=== PATIENT | female | born 1955 | race Caucasian/White ===

== ENCOUNTER → 2016-07-11 | Outpatient (CLI) | payer OTHER ==
[2016-07-11 07:36] LABS: Basophils % (A) 1 %; CHCM 33.2; Eosinophils # (A) 0.2 k/uL (0-0.7); Eosinophils % (A) 4 %; HCT 43.4 % (34.0-46.0); HDW 2.44; Luc # (Auto) 0.11; Luc % (Auto) 3; Lymphocytes # (A) 1.9 k/uL (1.0-4.8); Lymphocytes % (A) 44 %; MCH 29.4 pg (25.0-35.0); MCHC 32.3 g/dL (31.0-37.0); MCV 90.8 fL (80.0-100.0); Mean Platelet Volume 6.2; Monocytes # (A) 0.3 k/uL (0-1.0); Monocytes % (A) 6 %; Neutrophils # (A) 1.9 k/uL (1.3-7.7); Neutrophils % (A) 43 %; RBC 4.78 m/uL (3.80-5.40); RDW 13.1 % (11.5-15.5); WBC 4.4 k/uL (3.8-10.6)
[2016-07-11 07:45] LABS: ALT 33 U/L (9-52); AST 26 U/L (14-36); Alkaline Phosphatase 69 U/L (38-126); Anion Gap 8 mmol/L; Blood Urea Nitrogen 17 mg/dL (7-17); Calcium 9.7 mg/dL (8.4-10.2); Carbon Dioxide 28 mmol/L (22-30); Chloride 104 mmol/L (98-107); Cholesterol 213 mg/dL (<200); Glucose 89 mg/dL (74-99); HDL Cholesterol 72 mg/dL (40-60); Non-African American GFR(MDRD) >60 (>60 ml/min/1.73 sqM); Potassium 5.2 mmol/L (3.5-5.1); Sodium 140 mmol/L (137-145); Total Bilirubin 0.7 mg/dL (0.2-1.3); Total Protein 6.9 g/dL (6.3-8.2); Triglycerides 104 mg/dL (<150)
== END | disposition home or self-care (01) ==
LOC: LABWHC1 06:50
PROVIDERS: ATTEND Family Medicine
DX: Z00.00 Encounter for general adult medical examination without abnormal findings (principal); E78.2 Mixed hyperlipidemia; Z13.29 Encounter for screening for other suspected endocrine disorder; Z13.0 Encounter for screening for diseases of the blood and blood-forming organs and certain disorders involving the immune mechanism
CPT/HCPCS: 36415; 80053; 80061; 84443; 85025

== ENCOUNTER → 2017-07-10 | Outpatient (CLI) | payer OTHER ==
[2017-07-10 07:20] LABS: Basophils % (A) 1 %; Eosinophils # (A) 0.2 k/uL (0-0.7); Eosinophils % (A) 4 %; HCT 40.7 % (34.0-46.0); HGB 13.6 gm/dL (11.4-16.0); Lymphocytes # (A) 1.5 k/uL (1.0-4.8); Lymphocytes % (A) 40 %; MCH 28.8 pg (25.0-35.0); MCHC 33.4 g/dL (31.0-37.0); MCV 86.1 fL (80.0-100.0); Mean Platelet Volume 6.4; Monocytes # (A) 0.2 k/uL (0-1.0); Monocytes % (A) 5 %; Neutrophils # (A) 1.8 k/uL (1.3-7.7); Neutrophils % (A) 47 %; Platelet Count 345 k/uL (150-450); RBC 4.72 m/uL (3.80-5.40); RDW 12.7 % (11.5-15.5); WBC 3.8 k/uL (3.8-10.6)
[2017-07-10 07:52] LABS: ALT 25 U/L (9-52); AST 21 U/L (14-36); Albumin 3.9 g/dL (3.5-5.0); Alkaline Phosphatase 74 U/L (38-126); Anion Gap 11 mmol/L; Blood Urea Nitrogen 20 mg/dL (7-17); Calcium 9.6 mg/dL (8.4-10.2); Carbon Dioxide 27 mmol/L (22-30); Chloride 104 mmol/L (98-107); Cholesterol 210 mg/dL (<200); Glucose 94 mg/dL (74-99); HDL Cholesterol 62 mg/dL (40-60); LDL Cholesterol,Calculated 131 mg/dL (0-99); Potassium 5.1 mmol/L (3.5-5.1); Sodium 142 mmol/L (137-145); Total Bilirubin 0.5 mg/dL (0.2-1.3); Total Protein 6.5 g/dL (6.3-8.2); Triglycerides 85 mg/dL (<150)
[2017-07-10 15:29] LABS: Hemoglobin A1C 5.4 % (4.0-6.0)
--- NOTE | 2017-07-11 08:16 | MM ---
Reason for exam: screening (asymptomatic). Last mammogram was performed 2 years and 7 months ago. History: Patient is postmenopausal. Took estrogen for 4 months. Took progesterone for 4 months. Physical Findings: A clinical breast exam by your physician is recommended on an annual basis and results should be correlated with mammographic findings. MG 3D Screening Mammo W/Cad Bilateral CC and MLO view(s) were taken. Prior study comparison: November 29, 2014, bilateral MG screening mammo w CAD. March 05, 2012, [facility] DIGITAL LEFT BREAST MAMMOGRAM w/CAD. The breast tissue is heterogeneously dense. This may lower the sensitivity of mammography. There is no discrete abnormality. No significant changes when compared with prior studies. ASSESSMENT: Negative, BI-RAD 1 RECOMMENDATION: Routine screening mammogram of both breasts in 1 year.
== END | disposition home or self-care (01) ==
LOC: RADMAMWWP 06:44
PROVIDERS: ATTEND Family Medicine
DX: Z12.31 Encounter for screening mammogram for malignant neoplasm of breast (principal); Z00.00 Encounter for general adult medical examination without abnormal findings
CPT/HCPCS: 36415; 77063; 77067; 80053; 80061; 83036; 84443; 85025

== ENCOUNTER → 2020-02-09 | Outpatient (CLI) | payer OTHER ==
--- NOTE | 2020-02-11 09:20 | MM ---
Reason for exam: screening (asymptomatic). Last mammogram was performed 2 years and 7 months ago. History: Patient is postmenopausal. Took estrogen for 4 months. Took progesterone for 4 months. Physical Findings: A clinical breast exam by your physician is recommended on an annual basis and results should be correlated with mammographic findings. MG 3D Screening Mammo W/Cad Bilateral CC and MLO view(s) were taken. Prior study comparison: July 10, 2017, bilateral MG 3d screening mammo w/cad. November 29, 2014, bilateral MG screening mammo w CAD. There are scattered fibroglandular densities. There is chronic nodularity in the left breast. No significant changes when compared with prior studies. ASSESSMENT: Benign, BI-RAD 2 RECOMMENDATION: Routine screening mammogram of both breasts in 1 year.
== END | disposition home or self-care (01) ==
LOC: RADMAMWWP 08:24
PROVIDERS: ATTEND Family Medicine
DX: Z12.31 Encounter for screening mammogram for malignant neoplasm of breast (principal)
CPT/HCPCS: 77063; 77067

== ENCOUNTER → 2022-01-11 | Outpatient (CLI) | payer MEDICARE ==
--- NOTE | 2022-01-14 08:33 | MM ---
Reason for Exam: Screening (asymptomatic). Last mammogram was performed 1 year(s) and 11 month(s) ago. Indicated Problems: Pain of the right side (Focal) for 4 Month(s) : rt lat breast pain off and on dr does not know. Patient History: Menarche at age 14. First Full-Term at age 23. Postmenopausal. Estrogen for 4 months. Progesterone for 4 months. Risk Values: Sara 5 year model risk: 1.5%. NCI Lifetime model risk: 5.6%. Prior Study Comparison: 08/31/2004 Screening Mammogram, Unknown. 03/03/2012 Bilateral Screening Mammogram, [facility]. 03/05/2012 Left Diagnostic Mammogram, [facility]. 03/05/2012 Left Diagnostic Ultrasound, [facility]. 11/29/2014 Bilateral Screening Mammogram, [facility]. 07/10/2017 Bilateral Screening Mammogram, [facility]. 02/09/2020 Bilateral Screening Mammogram, [facility]. Tissue Density: The breast tissue is almost entirely fat. Findings: Analyzed By CAD. There is no suspicious group of microcalcifications or new suspicious mass in either breast. Overall Assessment: Negative, BI-RAD 1 Management: Screening Mammogram of both breasts in 1 year. A clinical breast exam by your physician is recommended on an annual basis and results should be correlated with mammographic findings. [facility] will attempt to contact patient to return for supplemental views and ultrasound if indicated. Electronically signed and approved by: Jimmy Banda DO
== END | disposition home or self-care (01) ==
LOC: RADMAMWWP 08:12
PROVIDERS: ATTEND Family Medicine
DX: Z12.31 Encounter for screening mammogram for malignant neoplasm of breast (principal); Z78.0 Asymptomatic menopausal state
CPT/HCPCS: 77063; 77067

== ENCOUNTER → 2022-03-25 | Outpatient (CLI) | payer MEDICARE ==
[2022-03-25 08:09] LABS: African American GFR (CKD) >90 (>60 ml/min/1.73 sqM); Blood Urea Nitrogen 11 mg/dL (7-17); Non-African American GFR(CKD) >90 (>60 ml/min/1.73 sqM)
--- NOTE | 2022-03-25 08:59 | CT ---
EXAMINATION TYPE: CT angio chest DATE OF EXAM: 03/25/2022 COMPARISON: NONE HISTORY: thoracic aneurysm CT DLP: 736.10 mGycm. Automated Exposure Control for Dose Reduction was Utilized. CONTRAST: CTA scan of the thorax is performed with IV Contrast, patient injected with 100 mL of Isovue 370, ane urysm protocol. 3D reconstructed images are created on an independent workstation and reviewed. FINDINGS: LUNGS: Mild linear scarring in the right middle lobe redemonstrated. No suspicious focal consolidatio n. No pleural effusion or pneumothorax seen bilaterally. MEDIASTINUM: Satisfactory enhancement of the central pulmonary arteries. Noncontrast images show no s uspicious hyperdense material to suggest intramural hematoma. Thoracic aorta measures up to 3.5 cm at level of main pulmonary artery axial image 60. Thoracic aorta measures up to 3.6 cm just below this axial image 69. Thoracic aorta measures 3.2 cm at the root coronal image 67. There is bovine configur ation which is normal variant. No significant plaque or stenosis in the arch. No aneurysm in the arch or descending aorta. There are no greater than 1 cm hilar or mediastinal lymph nodes. No cardiome farida or pericardial effusion is seen. OTHER: Cholecystectomy clips are seen. IMPRESSION: Ectatic ascending aorta up to 3.6 cm.
== END | disposition home or self-care (01) ==
LOC: RADCTMAIN 07:38
PROVIDERS: ATTEND Family Medicine
DX: I71.21 Aneurysm of the ascending aorta, without rupture (principal)
CPT/HCPCS: 82565; 84520; 71275; 36415; Q9967

== ENCOUNTER → 2022-10-30 | Outpatient (CLI) | payer MEDICARE ==
[2022-10-30 17:28] LABS: ALT 27 U/L (8-44); AST 21 U/L (13-35); Albumin 4.7 d/dL (3.8-4.9); Albumin/Globulin Ratio 2.24 Ratio (1.60-3.17); Alkaline Phosphatase 82 U/L (41-126); Bilirubin, Conjugated <0.20 mg/dL (0.20-0.40); Bilirubin,Unconjugated >0.20 mg/dL (0.20-1.00); Globulin 2.1 d/dL (1.6-3.3); Total Bilirubin 0.4 mg/dL (0.3-1.2); Total Protein 6.8 d/dL (6.2-8.2)
== END | disposition home or self-care (01) ==
LOC: LABWHC1 07:07
PROVIDERS: ATTEND Nurse Practitioner Family
DX: Z79.899 Other long term (current) drug therapy (principal)
CPT/HCPCS: 36415; 80076

== ENCOUNTER → 2023-01-24 | Outpatient (CLI) | payer MEDICARE ==
--- NOTE | 2023-01-27 08:13 | MM ---
Reason for Exam: Screening (asymptomatic). Last mammogram was performed 1 year(s) and 1 month(s) ago. Patient History: Menarche at age 14. First Full-Term at age 23. Postmenopausal. Estrogen for 4 months. Progesterone for 4 months. Risk Values: Sara 5 year model risk: 1.5%. NCI Lifetime model risk: 5.4%. Prior Study Comparison: 11/29/2014 Bilateral Screening Mammogram, [facility]. 07/10/2017 Bilateral Screening Mammogram, [facility]. 02/09/2020 Bilateral Screening Mammogram, [facility]. 01/11/2022 Bilateral MG 3D screening mammo w/cad, [facility]. Tissue Density: There are scattered fibroglandular densities. Findings: Analyzed By CAD. Pattern appears symmetrical and stable. No significant interval changes are evident. No suspicious groups of microcalcifications, spiculated or lobular masses, architectural distortion or other secondary signs of malignancy are mammographically apparent. Overall Assessment: Benign, BI-RAD 2 Management: Screening Mammogram of both breasts in 1 year. A negative mammogram report should not preclude additional follow up of suspicious palpable abnormalities. Patient should continue monthly self breast exam. A clinical breast exam by your physician is recommended on an annual basis and results should be correlated with mammographic findings. Electronically signed and approved by: Damon Rico D.O. Radiologis
== END | disposition home or self-care (01) ==
LOC: RADMAMWWP 07:06
PROVIDERS: ATTEND Family Medicine
DX: Z12.31 Encounter for screening mammogram for malignant neoplasm of breast (principal); Z78.0 Asymptomatic menopausal state
CPT/HCPCS: 77063; 77067

== ENCOUNTER → 2023-08-04 | Outpatient (CLI) | payer MEDICARE ==
[2023-08-04 10:41] LABS: Basophils # (A) 0.03 X 10*3/uL (0.00-0.10); Basophils % (A) 0.7 %; Eosinophils # (A) 0.09 X 10*3/uL (0.04-0.35); Eosinophils % (A) 2.1 %; HCT 39.8 % (37.2-46.3); HGB 12.9 g/dL (12.0-15.0); Lymphocytes # (A) 1.68 X 10*3/uL (0.90-5.00); Lymphocytes % (A) 39.5 %; MCH 28.5 pg (27.0-32.0); MCHC 32.4 g/dL (32.0-37.0); MCV 88.1 FL (80.0-97.0); Monocytes # (A) 0.38 X 10*3/uL (0.20-1.00); Monocytes % (A) 8.9 %; NRBC Per 100 WBC 0 X 10*3/uL (0.00-0.01); Neutrophils # (A) 2.06 X 10*3/uL (1.80-7.70); Neutrophils % (A) 48.6 %; Platelet Count 348 X 10*3/uL (140-440); RBC 4.52 X 10*6/uL (4.10-5.20); RDW 12.6 % (11.5-14.5); WBC 4.25 X 10*3/uL (4.50-10.00)
[2023-08-04 11:04] LABS: ALT 19 U/L (8-44); AST 19 U/L (13-35); Albumin 4.5 g/dL (3.8-4.9); Albumin/Globulin Ratio 2.37 Ratio (1.60-3.17); Alkaline Phosphatase 75 U/L (41-126); BUN/Creat Ratio 22.17 Ratio (12.00-20.00); Blood Urea Nitrogen 13.3 mg/dL (9.0-27.0); Calcium 9.5 mg/dL (8.7-10.3); Carbon Dioxide 23.9 mmol/L (21.6-31.8); Chloride 104 mmol/L (96-109); Chol/HDL Ratio 2.96 Ratio; Globulin 1.9 g/dL (1.6-3.3); Glucose 99 mg/dL (70-110); LDL Cholesterol,Calculated 98.9 mg/dL (0.0-131.0); Potassium 5.3 mmol/L (3.5-5.5); Sodium 138 mmol/L (135-145); Total Bilirubin 0.5 mg/dL (0.3-1.2); Total Protein 6.4 g/dL (6.2-8.2)
== END | disposition home or self-care (01) ==
LOC: LABWHC1 07:08
PROVIDERS: ATTEND Family Medicine
DX: Z13.220 Encounter for screening for lipoid disorders (principal); Z13.29 Encounter for screening for other suspected endocrine disorder; Z13.6 Encounter for screening for cardiovascular disorders; D64.9 Anemia, unspecified; E88.819 Insulin resistance, unspecified; R53.82 Chronic fatigue, unspecified; Z79.899 Other long term (current) drug therapy
CPT/HCPCS: 36415; 80053; 80061; 83036; 84443; 85025

== ENCOUNTER → 2024-01-09 | Outpatient (CLI) | payer MEDICARE ==
--- NOTE | 2024-01-09 07:55 | MM ---
Reason for Exam: Clinical finding. Last screening mammogram was performed 11 month(s) ago. Patient History: Menarche at age 14. First Full-Term at age 23. Postmenopausal. Estrogen for 4 months. Progesterone for 4 months. Risk Values: Sara 5 year model risk: 1.5%. NCI Lifetime model risk: 5.2%. Tissue Density: There are scattered areas of fibroglandular density. Findings: Analyzed By CAD. No finding to correlate with palpable abnormality. Overall Assessment: Incomplete: need additional imaging evaluation, BI-RAD 0 Management: Diagnostic Breast Ultrasound of the right breast. Results were given to the patient verbally at the time of exam. Patient should continue monthly self-breast exams. A clinical breast exam by your physician is recommended on an annual basis. This exam should not preclude additional follow-up of suspicious palpable abnormalities. Note on Sara scores and lifetime risk: 1. A Sara score greater than 3% is considered moderate risk. If this is the case, consider specialist referral to assess eligibility for a risk reducing agent. 2. If overall lifetime risk for the development of breast cancer is 20% or higher, the patient may qualify for future screening with alternating mammogram and breast MRI. [facility], , 01/09/2024 7:52 AM. Electronically signed and approved by: Jimmy Banda DO
--- NOTE | 2024-01-09 08:20 | USB ---
Reason for Exam: Clinical finding. Patient History: Menarche at age 14. First Full-Term at age 23. Postmenopausal. Estrogen for 4 months. Progesterone for 4 months. Risk Values: Sara 5 year model risk: 1.5%. NCI Lifetime model risk: 5.2%. Technique: Method: Targeted. Prior Study Comparison: 02/09/2020 Bilateral Screening Mammogram, [facility]. 01/11/2022 Bilateral MG 3D screening mammo w/cad, [facility]. 01/24/2023 Bilateral MG 3D screening mammo w/cad, [facility]. Findings: The upper outer quadrant of the right breast, the axilla of the right breast and the retroareolar of the right breast were scanned. Technique utilized:US breast limited RT Image; Ultrasound imaging of: Area of concern, retroareolar region and axilla. Tiny hyperechoic lesions in the area of palpable abnormality measuring 3 mm at 10:00 6 image nipple. No evidence for organizing fluid collection or suspicious mass. Technique utilized:US breast limited RT Image; Ultrasound imaging of: Area of concern, retroareolar region and axilla. Tiny hyperechoic lesions in the area of palpable abnormality measuring 3 mm at 10:00 6 centimeters nipple most compatible with lipoma. No evidence for organizing fluid collection or suspicious mass. Overall Assessment: Benign, BI-RAD 2 Management: Screening Mammogram of both breasts in 1 year. A clinical breast exam by your physician is recommended on an annual basis and results should be correlated with mammographic findings. This exam should not preclude additional follow-up of suspicious palpable abnormalities. Results were given to the patient verbally at the time of exam. [facility], , 01/09/2024 8:17 AM. Electronically signed and approved by: Jimmy Banda DO
== END | disposition home or self-care (01) ==
LOC: RADMAMWWP 07:13
PROVIDERS: ATTEND Family Medicine
CPT/HCPCS: 77062; 77066